=== PATIENT | female | born 1980 | race African-American/Black ===

== ENCOUNTER 2019-08-07 04:52 | Emergency (ER) | payer MEDICAID ==
[~2019-08-07] VITALS: Ht 170.2 cm; Wt 55.0 kg
[~2019-08-07 04:52] MED LIST: ACET-3161 PO
[2019-08-07 05:32] LABS: BASOPHILS % 1.4 % (0.0-2.0); EOSINOPHILS % 5.2 % (0.0-5.0); HEMATOCRIT. 29.1 % (36.0-48.0); LYMPHOCYTES % 28.4 % (20.0-50.0); MEAN CORPUSCULAR HEMOGLOBIN 23.3 pg (28.0-32.0); MEAN PLATELET VOLUME 8.6 fl (7.4-10.4); PLATELET 243 x1000/uL (130-400); RED BLOOD CELL COUNT 4.28 mill/uL (4.2-5.4); RED CELL DISTRIBUTION WIDTH 19.5 % (11.6-14.6)
[2019-08-07 06:46] LABS: CLARITY URINE TURBID (CLEAR); KETONES URINE 1+ (NEGATIVE); LEUKOCYTE ESTERASE URINE 2+ (NEGATIVE); NITRITE URINE POSITIVE (NEGATIVE); OCCULT BLOOD URINE 3+ (NEGATIVE); PROTEIN URINE 3+ (NEGATIVE); SPECIFIC GRAVITY URINE 1.039 (1.005-1.030)
[2019-08-07 06:47] LABS: CHLORIDE 109 mEq/L (98-107)
[2019-08-07 06:51] LABS: COLOR URINE BLOODY (YELLOW)
[2019-08-07 06:58] LABS: B-HCG QUANTITATIVE < 1 mIU/mL (<3)
[2019-08-07 07:19] LABS: PLATELET ESTIMATE NORMAL
[2019-08-07] MEDS ORDERED: IBUPROFEN 800MG TABLET PO ONE (08:30)
[2019-08-07 08:52] VITALS: BP 125/78
== END 2019-08-07 08:56 | disposition home or self-care (01) ==
LOC: ER 04:52
DX: D25.9 Leiomyoma of uterus, unspecified (principal)
CPT/HCPCS: 36415; 76856; 80053; 81003; 81025; 84702; 85025; 86850; 86900; 99284

== ENCOUNTER → 2020-07-09 | Outpatient (CLI) | payer MEDICAID ==
[~2020-07-09] MED LIST changes: +FERR-71 PO; +MULT-1116 PO
== END | disposition home or self-care (01) ==
LOC: LAB 08:23
PROVIDERS: ATTEND Obstetrics & Gynecology
DX: Z01.812 Encounter for preprocedural laboratory examination (principal); Z20.822 Contact with and (suspected) exposure to COVID-19
CPT/HCPCS: 87426

== ENCOUNTER → 2020-07-11 | Day surgery (SDC) | payer MEDICAID ==
[~2020-07-11] VITALS: Ht 170.2 cm; Wt 68.9 kg
[~2020-07-11] MED LIST changes: +FENTANYL CITRATE/PF 50MCG/ML 2ML VIAL ONE; +HYDROCODONE/ACETAMINOPHEN 5/325MG TABLET PO ONE; +LACTATED RINGERS 1,000 ML IV SCH; +MIDAZOLAM HCL 2 MG/2 ML VIAL ONE; +POLYMYXIN B SULFATE 500000 UNITS/VIAL ONE; +PROPOFOL 200MG/20ML VIAL IV ONE
[2020-07-11 07:52] LABS: BASOPHILS % 1.2 % (0.0-2.0); EOSINOPHILS % 1.4 % (0.0-5.0); HEMATOCRIT. 40.1 % (36.0-48.0); HEMOGLOBIN. 13.4 g/dL (12.0-16.0); LYMPHOCYTES % 42.8 % (20.0-50.0); MEAN CORPUSCULAR HEMOGLOBIN 25.9 pg (28.0-32.0); MEAN CORPUSCULAR VOLUME 77.2 fL (81.0-99.0); MEAN PLATELET VOLUME 10.1 fl (7.4-10.4); MONOCYTES % 8.4 % (2.0-8.0); NEUTROPHILS % 46.2 % (40.0-76.0); PLATELET 179 x1000/uL (130-400); RED BLOOD CELL COUNT 5.19 mill/uL (4.2-5.4); RED CELL DISTRIBUTION WIDTH 14.7 % (11.6-14.6)
[2020-07-11 07:58] LABS: CHLORIDE 108 mEq/L (98-107)
[2020-07-11 08:03] LABS: PARTIAL THROMBOPLASTIN TIME 27.6 sec (23.4-31.0)
[2020-07-11 08:11] LABS: HCG SCREEN NEGATIVE
[2020-07-11 09:09] LABS: CLARITY URINE CLEAR (CLEAR); COLOR URINE YELLOW (YELLOW); KETONES URINE TRACE (NEGATIVE); LEUKOCYTE ESTERASE URINE NEGATIVE (NEGATIVE); NITRITE URINE NEGATIVE (NEGATIVE); OCCULT BLOOD URINE NEGATIVE (NEGATIVE); PROTEIN URINE NEGATIVE (NEGATIVE); SPECIFIC GRAVITY URINE 1.019 (1.005-1.030); UROBILINOGEN URINE 0.2 E.U./dL (0.2-1.0)
[2020-07-11 09:13] LABS: UCG SCREEN NEGATIVE
[2020-07-11] MEDS: HYDROMORPHONE HCL/PF 2MG/ML CPJ IV PRN ×2 (12:11→12:29)
[2020-07-11 13:56] VITALS: BP 125/77
== END | disposition home or self-care (01) ==
LOC: OR 07:04
PROVIDERS: ATTEND Obstetrics & Gynecology
DX: D25.1 Intramural leiomyoma of uterus (principal); N93.9 Abnormal uterine and vaginal bleeding, unspecified; Z79.899 Other long term (current) drug therapy; Z98.890 Other specified postprocedural states
CPT/HCPCS: 36415; 58558; 80053; 81003; 81025; 84703; 85025; 85610; 85730; 86850; 86900; 86901; 88305; J1170; J2250; J2704; J3010; J3490; J7040

== ENCOUNTER 2020-08-14 21:34 | Emergency (ER) | payer MEDICAID ==
[~2020-08-14] VITALS: Ht 170.2 cm; Wt 68.0 kg
[~2020-08-14 21:34] MED LIST changes: -FENTANYL CITRATE/PF 50MCG/ML 2ML VIAL ONE; -HYDROCODONE/ACETAMINOPHEN 5/325MG TABLET PO ONE; -LACTATED RINGERS 1,000 ML IV SCH; -MIDAZOLAM HCL 2 MG/2 ML VIAL ONE; -POLYMYXIN B SULFATE 500000 UNITS/VIAL ONE; -PROPOFOL 200MG/20ML VIAL IV ONE
[2020-08-14] MEDS ORDERED: KETOROLAC 30MG/ML VIAL IM ONE (22:30)
[2020-08-14 23:16] LABS: BASOPHILS % 0.3 % (0.0-2.0); EOSINOPHILS % 0.5 % (0.0-5.0); HEMATOCRIT. 26.9 % (36.0-48.0); HEMOGLOBIN. 9.1 g/dL (12.0-16.0); LYMPHOCYTES % 14.4 % (20.0-50.0); MEAN CORPUSCULAR HEMOGLOBIN 23.8 pg (28.0-32.0); MEAN CORPUSCULAR VOLUME 70.2 fL (81.0-99.0); MEAN PLATELET VOLUME 7.1 fl (7.4-10.4); MONOCYTES % 4.6 % (2.0-8.0); NEUTROPHILS % 80.2 % (40.0-76.0); PLATELET 437 x1000/uL (130-400); RED BLOOD CELL COUNT 3.83 mill/uL (4.2-5.4); RED CELL DISTRIBUTION WIDTH 16.7 % (11.6-14.6)
[2020-08-14 23:21] LABS: CHLORIDE 101 mEq/L (98-107)
[2020-08-14 23:32] LABS: B-HCG QUANTITATIVE < 1 mIU/mL (<3)
[2020-08-14] MEDS ORDERED: POTASSIUM CHLORIDE 20MEQ TABLET SR PO ONE (23:45)
[2020-08-15 01:28] LABS: PLATELET ESTIMATE NORMAL
[2020-08-15 03:57] VITALS: BP 121/80
== END 2020-08-15 05:15 | disposition home or self-care (01) ==
LOC: ER 21:34
DX: E87.6 Hypokalemia (principal); D25.9 Leiomyoma of uterus, unspecified; D64.9 Anemia, unspecified
CPT/HCPCS: 36415; 74176; 76830; 76856; 80053; 84702; 85025; 86850; 86900; 86901; 93005; 96372; 99285; J1885

== ENCOUNTER 2020-08-17 00:10 | Emergency (ER) | payer MEDICAID, OTHER ==
[~2020-08-17] VITALS: Ht 180.3 cm; Wt 73.0 kg
[2020-08-17] MEDS ORDERED: KETOROLAC 15MG/ML VIAL IM ONE (02:30)
[2020-08-17 03:08] VITALS: BP 112/84
== END 2020-08-17 03:10 | disposition home or self-care (01) ==
LOC: ER 00:10
DX: D25.9 Leiomyoma of uterus, unspecified (principal); Z98.890 Other specified postprocedural states
CPT/HCPCS: 96372; 99283; J1885

== ENCOUNTER → 2020-10-18 | Outpatient (CLI) | payer MEDICAID ==
[~2020-10-18] MED LIST changes: +IBUP-2437 PO; +NAPR220T66 PO
== END | disposition home or self-care (01) ==
LOC: LAB 15:02
PROVIDERS: ATTEND Obstetrics & Gynecology
DX: Z01.812 Encounter for preprocedural laboratory examination (principal); Z20.822 Contact with and (suspected) exposure to COVID-19
CPT/HCPCS: 87426

== ENCOUNTER 2021-08-23 03:24 | Emergency (ER) | payer MEDICAID, OTHER ==
[~2021-08-23] VITALS: Ht 170.2 cm; Wt 86.2 kg
[2021-08-23] MEDS ORDERED: SODIUM CHLORIDE 0.9% 1,000 ML IV ONE (05:15)
[2021-08-23 05:54] LABS: BASOPHILS % 0.7 % (0.0-2.0); EOSINOPHILS % 0.9 % (0.0-5.0); HEMATOCRIT. 43.1 % (36.0-48.0); HEMOGLOBIN. 14.8 g/dL (12.0-16.0); LYMPHOCYTES % 24.1 % (20.0-50.0); MEAN CORPUSCULAR HEMOGLOBIN 26.1 pg (28.0-32.0); MEAN CORPUSCULAR VOLUME 75.7 fL (81.0-99.0); MEAN PLATELET VOLUME 10.2 fl (7.4-10.4); MONOCYTES % 6.3 % (2.0-8.0); PLATELET 230 x1000/uL (130-400); RED BLOOD CELL COUNT 5.69 mill/uL (4.2-5.4); RED CELL DISTRIBUTION WIDTH 13.5 % (11.6-14.6)
[2021-08-23 06:07] LABS: CHLORIDE 103 mEq/L (98-107)
[2021-08-23] MEDS ORDERED: KETOROLAC 30MG/ML VIAL IV STA (06:07)
[2021-08-23 07:53] LABS: CLARITY URINE CLEAR (CLEAR); COLOR URINE YELLOW (YELLOW); KETONES URINE NEGATIVE (NEGATIVE); LEUKOCYTE ESTERASE URINE 2+ (NEGATIVE); NITRITE URINE NEGATIVE (NEGATIVE); OCCULT BLOOD URINE NEGATIVE (NEGATIVE); PROTEIN URINE NEGATIVE (NEGATIVE); SPECIFIC GRAVITY URINE 1.016 (1.005-1.030)
[2021-08-23 08:08] LABS: *AMPHETAMINES SCREEN URINE NEGATIVE (NEGATIVE); *BARBITURATES SCREEN URINE NEGATIVE (NEGATIVE); *BENZODIAZEPINES SCREEN URINE NEGATIVE (NEGATIVE); *COCAINE SCREEN URINE NEGATIVE (NEGATIVE); CANNABINOID URINE SCREEN NEGATIVE (NEGATIVE); METHADONE URINE SCREEN NEGATIVE (NEGATIVE); OPIATES URINE SCREEN NEGATIVE (NEGATIVE); PHENCYCLIDINE URINE SCREEN NEGATIVE (NEGATIVE)
[2021-08-23] MEDS ORDERED: NITR-87 MT (09:23)
[2021-08-23] MEDS ORDERED: IBUP-2030 MT (09:23)
[2021-08-23] MEDS ORDERED: PHEN-815 MT (09:23)
[2021-08-23 09:30] VITALS: BP 123/71
== END 2021-08-23 09:37 | disposition home or self-care (01) ==
LOC: ER 03:24
DX: N39.0 Urinary tract infection, site not specified (principal); Z90.710 Acquired absence of both cervix and uterus
CPT/HCPCS: 36415; 76856; 80053; 80305; 81003; 83690; 85025; 96361; 96374; 99284; J1885; J7030

== ENCOUNTER 2022-09-04 05:45 | Emergency (ER) | payer MEDICAID, OTHER ==
[~2022-09-04] VITALS: Ht 162.6 cm; Wt 91.0 kg
[~2022-09-04 05:45] MED LIST changes: +IBUP-2030 MT; +NITR-87 MT; +PHEN-815 MT
[2022-09-04 05:48] VITALS: O2SAT 100
[2022-09-04] MEDS ORDERED: ONDANSETRON HCL 4MG/2ML INJ IV STA (06:03)
[2022-09-04] MEDS ORDERED: SODIUM CHLORIDE 0.9% 1,000 ML IV ONE (06:15)
[2022-09-04] MEDS ORDERED: MAGNESIUM/ALUMINUM HYDROXIDE/SIMETHICONE 30ML UDC PO ONE (06:30)
[2022-09-04] MEDS ORDERED: KETOROLAC 15MG/ML VIAL IV ONE (06:30)
[2022-09-04 07:20] LABS: BASOPHILS % 0.7 % (0.0-2.0); EOSINOPHILS % 0.5 % (0.0-5.0); HEMATOCRIT. 41.4 % (36.0-48.0); HEMOGLOBIN. 14.4 g/dL (12.0-16.0); LYMPHOCYTES % 21.8 % (20.0-50.0); MEAN CORPUSCULAR HEMOGLOBIN 25.5 pg (28.0-32.0); MEAN CORPUSCULAR VOLUME 73.3 fL (81.0-99.0); MONOCYTES % 4.3 % (2.0-8.0); NEUTROPHILS % 72.7 % (40.0-76.0); PLATELET 273 x1000/uL (130-400); RED BLOOD CELL COUNT 5.64 mill/uL (4.2-5.4); RED CELL DISTRIBUTION WIDTH 14.1 % (11.6-14.6)
[2022-09-04 07:24] LABS: PROTHROMBIN TIME 11.1 sec (9.6-11.0)
[2022-09-04 07:28] LABS: CHLORIDE 104 mEq/L (98-107)
[2022-09-04 07:35] LABS: ETHANOL BLOOD < 10 mg/dL (-10)
[2022-09-04 07:39] LABS: HCG SCREEN NEGATIVE
[2022-09-04 08:10] VITALS: TEMP 98.1
[2022-09-04] MEDS ORDERED: NAPR-420 MT (09:30)
[2022-09-04] MEDS ORDERED: ONDA4TAB50 MT (09:30)
[2022-09-04] MEDS ORDERED: DICY10CA88 MT (09:30)
[2022-09-04 09:31] LABS: CLARITY URINE TURBID (CLEAR); COLOR URINE YELLOW (YELLOW); KETONES URINE 3+ (NEGATIVE); LEUKOCYTE ESTERASE URINE 2+ (NEGATIVE); NITRITE URINE NEGATIVE (NEGATIVE); OCCULT BLOOD URINE NEGATIVE (NEGATIVE); PH URINE 6.5 (4.5-8.0); PROTEIN URINE 1+ (NEGATIVE); SPECIFIC GRAVITY URINE 1.034 (1.005-1.030)
[2022-09-04] MEDS ORDERED: CEPH500C2 MT (09:33)
[2022-09-04 09:58] VITALS: BP 123/85; PULSE 72; RESP 20
[2022-09-04 10:27] LABS: *AMPHETAMINES SCREEN URINE NEGATIVE (NEGATIVE); *BARBITURATES SCREEN URINE NEGATIVE (NEGATIVE); *BENZODIAZEPINES SCREEN URINE NEGATIVE (NEGATIVE); *COCAINE SCREEN URINE NEGATIVE (NEGATIVE); CANNABINOID URINE SCREEN NEGATIVE (NEGATIVE); METHADONE URINE SCREEN NEGATIVE (NEGATIVE); OPIATES URINE SCREEN NEGATIVE (NEGATIVE); PHENCYCLIDINE URINE SCREEN NEGATIVE (NEGATIVE)
[2022-09-05] MEDS ORDERED: CEPH500T MT (08:34)
== END 2022-09-04 10:00 | disposition home or self-care (01) ==
LOC: ER 05:45
DX: N39.0 Urinary tract infection, site not specified (principal); Z00.00 Encounter for general adult medical examination without abnormal findings; Z79.899 Other long term (current) drug therapy
CPT/HCPCS: 80053; 80305; 81003; 81025; 80320; 84703; 83605; 83690; 85025; 85610; 36415; 74176; 96361; 96374; 99285; J2405; J7030; J1885; G0480

== ENCOUNTER 2022-09-05 07:55 | Emergency (ER) | payer MEDICAID, OTHER ==
[~2022-09-05] VITALS: Ht 165.1 cm; Wt 75.0 kg
[~2022-09-05 07:55] MED LIST changes: +CEPH500C2 MT; +DICY10CA88 MT; +NAPR-420 MT; +ONDA4TAB50 MT
[2022-09-05 08:00] VITALS: TEMP 98; O2SAT 100
[2022-09-05] MEDS ORDERED: CEPH500T MT (08:34)
[2022-09-05 08:45] VITALS: BP 130/79; PULSE 80; RESP 16
[2022-09-05] MEDS ORDERED: IBUPROFEN 600MG TABLET PO ONE (08:45)
== END 2022-09-05 09:33 | disposition home or self-care (01) ==
LOC: ER 07:55
DX: N30.90 Cystitis, unspecified without hematuria (principal); Z90.710 Acquired absence of both cervix and uterus
CPT/HCPCS: 99283

== ENCOUNTER 2024-08-13 14:10 | Emergency (ER) | payer MEDICAID, OTHER ==
[~2024-08-13] VITALS: Ht 167.6 cm; Wt 85.0 kg
[~2024-08-13 14:10] MED LIST changes: +CEPH500T MT; +DICY-18 MT; -DICY10CA88 MT
[2024-08-13 14:26] VITALS: O2SAT 98
[2024-08-13 15:06] LABS: CLARITY URINE CLEAR (CLEAR); COLOR URINE YELLOW (YELLOW); GLUCOSE URINE NEGATIVE (NEGATIVE); KETONES URINE NEGATIVE (NEGATIVE); LEUKOCYTE ESTERASE URINE NEGATIVE (NEGATIVE); NITRITE URINE NEGATIVE (NEGATIVE); OCCULT BLOOD URINE NEGATIVE (NEGATIVE); PH URINE 8.5 (4.5-8.0); PROTEIN URINE NEGATIVE (NEGATIVE); SPECIFIC GRAVITY URINE 1.013 (1.005-1.030); UROBILINOGEN URINE 0.2 E.U./dL (0.2-1.0)
[2024-08-13 16:21] LABS: BASOPHILS % 0.6 % (0.0-2.0); DIFFERENTIAL COMMENT 0; EOSINOPHILS % 0.7 % (0.0-5.0); HEMATOCRIT. 39.6 % (36.0-48.0); HEMOGLOBIN. 13.4 g/dL (12.0-16.0); MEAN CORPUSCULAR VOLUME 76.6 fL (81.0-99.0); MEAN PLATELET VOLUME 10.5 fl (7.4-10.4); NEUTROPHILS % 66.7 % (40.0-76.0); PLATELET 189 x1000/uL (130-400); RED BLOOD CELL COUNT 5.16 mill/uL (4.2-5.4); RED CELL DISTRIBUTION WIDTH 14.3 % (11.6-14.6); WHITE BLOOD COUNT 7.7 x1000/uL (4.5-11.0)
[2024-08-13 16:31] LABS: CARBON DIOXIDE 28 mEq/L (21-32); CHLORIDE 104 mEq/L (98-107); POTASSIUM 4.5 mEq/L (3.5-5.1); SODIUM 139 mEq/L (136-145)
[2024-08-13 16:32] LABS: CALCIUM 9.4 mg/dL (8.7-10.4)
[2024-08-13 16:36] LABS: CREATININE 0.6 mg/dL (0.6-1.0)
[2024-08-13 16:37] LABS: GLUCOSE 94 mg/dL (70-105); UREA NITROGEN BLOOD 6 mg/dL (9-23)
[2024-08-13 16:38] LABS: ALANINE AMINOTRANSFERASE 22 IU/L (10-49); ALBUMIN 4.5 g/dL (3.2-4.8); ASPARTATE AMINOTRANSFERASE 23 IU/L (<34)
[2024-08-13 16:39] LABS: BILIRUBIN DIRECT < 0.1 mg/dL (<=3.0); BILIRUBIN TOTAL 0.3 mg/dL (0.1-1.0); PROTEIN TOTAL 7.2 g/dL (6.0-8.3)
[2024-08-13 17:37] VITALS: BP 129/72; PULSE 80; RESP 16; TEMP 36.9; O2SAT 98
== END 2024-08-13 17:38 | disposition home or self-care (01) ==
LOC: ER 14:10
DX: R10.9 Unspecified abdominal pain (principal); Z87.440 Personal history of urinary (tract) infections; Z90.710 Acquired absence of both cervix and uterus; Z79.899 Other long term (current) drug therapy
CPT/HCPCS: 36415; 80048; 80076; 81003; 85025; 99283

== ENCOUNTER 2025-01-10 13:29 | Emergency (ER) | payer OTHER ==
[~2025-01-10] VITALS: Ht 170.2 cm; Wt 82.0 kg
[2025-01-10 13:31] VITALS: O2SAT 99
[2025-01-10 15:21] LABS: BASOPHILS % 0.8 % (0.0-2.0); EOSINOPHILS % 0.5 % (0.0-5.0); HEMATOCRIT. 39.6 % (36.0-48.0); HEMOGLOBIN. 13.6 g/dL (12.0-16.0); LYMPHOCYTES % 24.9 % (20.0-50.0); MEAN PLATELET VOLUME 10.4 fl (7.4-10.4); MONOCYTES % 5.4 % (2.0-8.0); NEUTROPHILS % 68.4 % (40.0-76.0); PLATELET 209 x1000/uL (130-400); RED BLOOD CELL COUNT 5.23 mill/uL (4.2-5.4); RED CELL DISTRIBUTION WIDTH 13.8 % (11.6-14.6)
[2025-01-10 15:39] LABS: CREATININE 0.7 mg/dL (0.6-1.0)
[2025-01-10 15:40] LABS: UREA NITROGEN BLOOD 7 mg/dL (9-23)
[2025-01-10 15:41] LABS: ASPARTATE AMINOTRANSFERASE 11 IU/L (<34)
[2025-01-10 15:42] LABS: BILIRUBIN DIRECT < 0.1 mg/dL (<=3.0); BILIRUBIN TOTAL 0.4 mg/dL (0.1-1.0); PROTEIN TOTAL 7.3 g/dL (6.0-8.3)
[2025-01-10 16:00] LABS: HCG SCREEN NEGATIVE
[2025-01-10 16:28] LABS: CLARITY URINE CLOUDY (CLEAR); COLOR URINE YELLOW (YELLOW); GLUCOSE URINE NEGATIVE (NEGATIVE); KETONES URINE NEGATIVE (NEGATIVE); LEUKOCYTE ESTERASE URINE NEGATIVE (NEGATIVE); NITRITE URINE NEGATIVE (NEGATIVE); OCCULT BLOOD URINE NEGATIVE (NEGATIVE); PH URINE 7.0 (4.5-8.0); PROTEIN URINE NEGATIVE (NEGATIVE); SPECIFIC GRAVITY URINE 1.014 (1.005-1.030); UROBILINOGEN URINE 1.0 E.U./dL (0.2-1.0)
[2025-01-10 17:00] VITALS: BP 128/72; PULSE 72; RESP 18; TEMP 36.7; O2SAT 98
[2025-01-10 17:03] LABS: BACTERIA URINE 4+; RBC URINE 0-2 /hpf (0-2); SQUAMOUS EPITHELIAL CELL URINE 3+ /lpf (RARE/1+); WBC URINE 0-2 /hpf (0-2)
== END 2025-01-10 17:15 | disposition home or self-care (01) ==
LOC: ER 13:29
DX: N95.1 Menopausal and female climacteric states (principal); R23.2 Flushing; Z79.899 Other long term (current) drug therapy
CPT/HCPCS: 36415; 80048; 80076; 81003; 81025; 84703; 85025; 99283